=== PATIENT | male | born 1980 | race Caucasian/White ===

== ENCOUNTER 2017-06-21 10:40 | Emergency (ER) | payer OTHER ==
[~2017-06-21] VITALS: Ht 190.5 cm; Wt 127.0 kg
[~2017-06-21 10:40] MED LIST: Advil200 M1 PO; DIAZ5 PO; HYDACE5 PO; OXYACE5T PO; PRED20 PO
[2017-06-21 11:33] LABS: BASOPHILS ABSOLUTE AUTO 0.04 K/mm3 (0.00-0.23); BASOPHILS PERCENT AUTO 1 % (0-2); EOSINOPHILS ABSOLUTE AUTO 0.29 K/mm3 (0.00-0.68); EOSINOPHILS PERCENT AUTO 4 % (0-6); Hemoglobin 14.2 g/dL (13.5-17.5); IMMATURE GRAN ABSOLUTE AUTO 0.01 K/mm3 (0.00-0.10); IMMATURE GRAN PERCENT AUTO 0 % (0-1); LYMPHOCYTES ABSOLUTE AUTO 2.38 K/mm3 (0.84-5.20); LYMPHOCYTES PERCENT AUTO 34 % (21-46); MONOCYTES ABSOLUTE AUTO 0.52 K/mm3 (0.16-1.47); MONOCYTES PERCENT AUTO 7 % (4-13); Mean Corpuscular HGB 29.6 pg (26.0-34.0); Mean Corpuscular Volume 90 fL (80-100); NEUTROPHILS PERCENT AUTO 54 % (41-73); RDW Coefficient Variation 13.2 % (11.7-14.2); RDW Standard Deviation 43.8 fL (35.1-46.3); Red Blood Cell Count 4.79 M/mm3 (4.30-5.90); White Blood Cell Count 7.04 K/mm3 (4.00-11.30)
[2017-06-21 11:45] LABS: Mean Platelet Volume 10.2 fL (9.1-12.4); Platelet Count 208 K/mm3 (150-400)
[2017-06-21 12:01] LABS: Alanine Aminotransfer (ALT/SGP 24 U/L (12-78); Albumin, Blood 3.5 g/dL (3.4-5.0); Albumin/Globulin Ratio 0.9 (0.8-1.8); Alk Phos 87 U/L (50-136); Anion Gap 10 mmol/L (6-16); Aspartate Aminotrans (AST/SGOT 9 U/L (12-37); Bilirubin, Total 0.3 mg/dL (0.1-1.0); Blood Urea Nitrogen 9 mg/dL (8-24); Bun/Creatinine Ratio 9.6 (12.0-20.0); CO2, Blood 23 mmol/L (21-32); Calcium, Blood 8.4 mg/dL (8.5-10.1); Chloride, Blood 109 mmol/L (98-108); Creatinine, Blood 0.94 mg/dL (0.60-1.20); Globulin, Blood 3.7 g/dL (2.2-4.0); Glomerular Filtration Rate >60 (60-); Glucose, Blood 104 mg/dL (70-99); Potassium, Blood 4.4 mmol/L (3.5-5.5); Sodium, Blood 142 mmol/L (136-145); Total Protein, Blood 7.2 g/dL (6.4-8.2); Troponin I <0.015 ng/mL (0.000-0.040)
[2017-06-21] MEDS ORDERED: Robaxin-750750 MG PO (14:11)
[2017-06-21] MEDS ORDERED: IBUP600 PO (14:11)
== END 2017-06-21 14:22 | disposition home or self-care (01) ==
LOC: ER 10:40
PROVIDERS: Emergency Medicine
DX: M25.512 Pain in left shoulder (principal); F17.210 Nicotine dependence, cigarettes, uncomplicated
CPT/HCPCS: 36415; 71046; 80053; 84484; 85025; 93005; 93010; 96374; 99284; J1885

== ENCOUNTER → 2021-10-14 | Outpatient (CLI) | payer OTHER ==
[~2021-10-14] MED LIST changes: +IBUP600 PO; +Robaxin-750750 MG PO
[2021-10-20 02:10] LABS: HSV-1 DNA Negative (Negative); HSV-2 DNA Negative (Negative)
== END | disposition home or self-care (01) ==
LOC: LAB 15:10 → LAB SHORT 15:10
PROVIDERS: Nurse Practitioner
DX: R21 Rash and other nonspecific skin eruption (principal)
CPT/HCPCS: 87529

== ENCOUNTER 2024-07-22 06:20 | Day surgery (SDC) | payer OTHER ==
[~2024-07-22] VITALS: Ht 190.5 cm; Wt 125.0 kg
[~2024-07-22 06:20] MED LIST changes: +Lactated Ringer's 1,000 ML ONE
[2024-07-22] MEDS ORDERED: Tranexamic Acid 100 ML IV ONE (06:23)
[2024-07-22] MEDS ORDERED: CeFAZolin Sodium 2,000 MG VIAL ONE (06:23)
[2024-07-22] MEDS ORDERED: Lactated Ringer's 1,000 ML IV ONE ×3 (06:36→09:21)
[2024-07-22] MEDS ORDERED: Ondansetron HCl 2 MG / ML 2ML Vial ONE (06:45)
[2024-07-22] MEDS ORDERED: FentaNYL Citrate 50 MCG/ML 2 ML Injection ONE (06:45)
[2024-07-22] MEDS ORDERED: Rocuronium Bromide 10 MG/ML 5ML Injection IV ONE (06:45)
[2024-07-22] MEDS ORDERED: Midazolam HCl 1MG / ML 2ML Vial ONE (06:45)
[2024-07-22] MEDS ORDERED: propofoL 20 ML IV ONE (06:45)
[2024-07-22] MEDS ORDERED: Dexamethasone Sod Phos 10 MG/ML 1ML VIAL ONE (06:45)
[2024-07-22] MEDS ORDERED: Sugammadex Sodium 200 MG/2ML SDV (100 MG/ML) ONE (06:45)
[2024-07-22] MEDS ORDERED: Lidocaine 2%-Epineph 1:200000 20 ML SDV ONE (06:46)
[2024-07-22] MEDS ORDERED: Ketorolac Tromethamine 30mg Vial ONE (06:46)
[2024-07-22] MEDS ORDERED: Bupivacaine 0.5% HCl 5 MG/ML 30MLVIAL ONE (06:46)
[2024-07-22] MEDS ORDERED: Dexmedetomidine HCL 200 MCG / 2 ML ONE (06:48)
[2024-07-22] MEDS ORDERED: EPINEPhrine HCl 1 MG/ML 1ML Amp ONE (06:54)
[2024-07-22] MEDS ORDERED: CeFAZolin Sodium 1000 mg Vial ONE (07:07)
--- NOTE | 2024-07-22 07:27 | NUR ---
07/22/24 0727 Qing Christie 0718- TIME OUT PERFORMED PRIOR TO L INTERSCALENE BLOCK. CORRECT SIDE CONFIRMED. PROCEDURE STARTED AT 07 AND COMPLETED AT 07. PTS VITALS WERE MONITORED AND REMAINED STABLE DURING PROCEDURE. O2 2 LITERS WAS APPLIED DURING PROCEDURE.
--- NOTE | 2024-07-22 08:25 | NUR ---
07/22/24 0825 Nimisha Mcleod 1MG OF EPI ADDED TO EACH OF THE FIRST THREE BAGS OF LR USED FOR JOINT IRRIGATION.
--- NOTE | 2024-07-22 11:29 | NUR ---
07/22/24 1129 Letitia Rich PT TO PACU, ASLEEP AND NO ACUTE DISTRESS NOTED. REPORT RECEIVED FROM [facility]ICE [facility] AND MDA. LEFT FINGERS COOL, DRY, PINK. LEFT RADIAL PULSE PALPABLE. PT CURRENTLY AROUSABLE TO VERBAL STIMULI. VSS.
--- NOTE | 2024-07-22 12:14 | NUR ---
07/22/24 1214 Letitia Rich REPORT GIVEN TO SCOTT MAYNARD
[2024-07-22 12:54] VITALS: BP 125/90
== END 2024-07-22 13:12 | disposition home or self-care (01) ==
LOC: ORSCSDS 06:20
PROVIDERS: Orthopaedic Surgery Sports Medicine
PROC: 0RBK4ZZ Excision of Left Shoulder Joint, Percutaneous Endoscopic Approach (ICD-10-PCS; principal; 2024-07-22 07:30)
DX: M19.012 Primary osteoarthritis, left shoulder (principal); M75.42 Impingement syndrome of left shoulder; M75.22 Bicipital tendinitis, left shoulder; Z87.891 Personal history of nicotine dependence; E66.9 Obesity, unspecified; Z68.34 Body mass index [BMI] 34.0-34.9, adult
CPT/HCPCS: J0171; J0690; J1100; J1885; J2250; J2405; J2704; J3010; J7120